=== PATIENT | female | born 1960 | race Caucasian/White ===

== ENCOUNTER 2018-02-15 23:20 | Inpatient (IN) ==
[2018-02-15] MEDS ORDERED: Ketorolac Inj 30 MG/ML (IVP) Vial IV.PUSH ONE (23:59)
[2018-02-15] MEDS ORDERED: Sod Chloride 0.9% Inj 1,000 ML IV.SIG ONE (23:59)
[2018-02-15] MEDS ORDERED: Morphine Inj 4 MG/ML Vial IV.PUSH ONE (23:59)
--- NOTE | 2018-02-16 00:05 | ED ---
HPI General Chief Complaint: Abdominal Pain Stated Complaint: Poss High BP Time Seen by Provider: 02/15/18 23:52 Source: patient and family Mode of arrival: ambulatory Limitations: no limitations History of Present Illness HPI narrative: The patient is a 57-year-old female who presents to the emergency department with her son for left flank pain. The patient notes that the pain started approximately 10 days ago, initially was intermittent, however , is now constant and progressive. The patient does complain of mild dysuria and hematuria. The patient does have a history of similar symptoms in the past secondary to nephrolithiasis, approximately 8 years ago. Symptoms are moderate without any alleviating or exacerbating factors. The patient does have a history of previous abdominal surgeries including surgery for uterine prolapse and appendicitis. The patient does note chills without fever. MD complaint: flank pain Onset (ago): day(s) Pain Consistency: intermittent Location: L flank Related Data Allergies Allergy/AdvReac Type Severity Reaction Status Date / Time No Known Allergies Allergy Verified 02/15/18 23:48 Review of Systems ROS: all other systems reviewed are negative [facility] Medical History Medical History Hypertension (Acute) Kidney stones (Acute) Prolapsed uterus (Acute) Surgical History Surgical History History of appendectomy (Acute) Social History Social History Substance History: No History of Abuse Smoking Status: Never smoker How Often Do You Have a Drink Containing Alcohol: Never Recent Travel in [facility] within the Last 8 Weeks: No Recent Out of Country Travel within the Last 8 Weeks: No Immunization History Tetanus Immunization: >5 Years Exam Narrative Exam Narrative: GENERAL: Awake, alert, pleasant 57-year-old female who appears her stated age and is in no acute respiratory distress. SKIN: Focused skin assessment warm/dry. HEAD: Atraumatic. Normocephalic. EYES: No injection or drainage per ENT: No nasal bleeding or discharge. Mucous membranes pink and moist. NECK: Trachea midline. No JVD. CARDIOVASCULAR: Regular rate and rhythm. No murmur appreciated. Rate in the 90s per RESPIRATORY: No accessory muscle use. Clear to auscultation. Breath sounds equal bilaterally. GASTROINTESTINAL: Abdomen soft, left flank tenderness. No guarding rigidity. Back: Left CVA tenderness. MUSCULOSKELETAL: No obvious deformities. No clubbing. No cyanosis. No edema. NEUROLOGICAL: Awake and alert. No obvious cranial nerve deficits. Motor grossly within normal limits. Normal speech. PSYCHIATRIC: Appropriate mood and affect; insight and judgment normal. Course Initial Documented Vital Signs Temperature 100.9 F H 02/15/18 23:33 Pulse Rate 95 H 02/15/18 23:33 Respiratory Rate 18 02/15/18 23:33 Blood Pressure 138/63 02/15/18 23:33 Pulse Oximetry 98 02/15/18 23:33 Last Documented Vital Signs Temperature 100.9 F H 02/15/18 23:33 Pulse Rate 95 H 02/15/18 23:33 Respiratory Rate 18 02/15/18 23:33 Blood Pressure 138/63 02/15/18 23:33 Pulse Oximetry 98 02/15/18 23:33 Medical Decision Making MDM Narrative Medical decision making narrative: IV was established, labs are drawn and sent, and the patient was placed on cardiac telemetry monitoring and continuous pulse oximetry monitoring. UA was sent to lab. The patient was administer morphine, Toradol, Zofran, and IV fluids. Noncontrast CT of the abdomen and pelvis was obtained to evaluate for nephrolithiasis/diverticulitis. UA reveals RBCs, only a few WBCs. White count was normal. Lactic acid was normal. Creatinine is mildly rated at 1.29. CT of the abdomen and pelvis reveals a 7 mm stone in the left ureter with hydronephrosis. The patient has a temperature of 100.9 and pulse of 95, meet sepsis criteria. Therefore, the patient was administer Rocephin 1 g intravenously and will be admitted for urology evaluation. The on- call medical service was paged for admission. I discussed the patient with Dr. Huerta who agrees with 23 hour observation. Medical Screen Exam Complete: Yes Emergency Medical Condition: Yes Differential Diagnosis Differential Diagnosis: Differential diagnosis includes nephrolithiasis, hydronephrosis, pyelonephritis, diverticulitis, sepsis, intra-abdominal abscess. Lab Data Result diagrams: 02/16/18 00:17 02/16/18 00:17 Lab Results 02/16/18 02/16/18 02/16/18 Range/Units 00:17 00:17 00:17 WBC 8.6 (4.0-11.0) th/mm3 RBC 4.12 (4.00-5.30) mil/mm3 Hgb 12.2 (11.6-15.3) gm/dL Hct 35.4 (35.0-46.0) % MCV 85.8 (80.0-100.0) fL MCH 29.6 (27.0-34.0) pg MCHC 34.5 (32.0-36.0) % RDW 13.9 (11.6-17.2) % Plt Count 281 (150-450) th/mm3 MPV 7.2 (7.0-11.0) fL Neut % (Auto) 74.2 H (16.0-70.0) % Lymph % (Auto) 15.9 (9.0-44.0) % [place] % (Auto) 7.3 (0.0-8.0) % Eos % (Auto) 2.2 (0.0-4.0) % Baso % (Auto) 0.4 (0.0-2.0) % Neut # (Auto) 6.4 (1.8-7.7) th/mm3 Lymph # (Auto) 1.4 (1.0-4.8) th/mm3 [place] # (Auto) 0.6 (0.0-0.9) th/mm3 Eos # (Auto) 0.2 (0.0-0.4) th/mm3 Baso # (Auto) 0.0 (0.0-0.2) th/mm3 WBC Differential . Differential Comment Auto diff final Sodium 144 (136-145) meq/L Potassium 4.2 (3.5-5.1) meq/L Chloride 108 H (98-107) meq/L Carbon Dioxide 28.6 (21.0-32.0) meq/L Anion Gap 7 (5-15) meq/L BUN 20 H (7-18) mg/dL Creatinine 1.29 H (0.50-1.00) mg/dL Estimated GFR 43 L (>89) mL/min Random Glucose 128 H (74-106) mg/dL Lactic Acid 0.8 (0.4-2.0) mmol/L Calcium 8.9 (8.5-10.1) mg/dL Total Bilirubin 0.3 (0.2-1.0) mg/dL AST 20 (15-37) U/L ALT 26 (10-53) U/L Alkaline Phosphatase 144 H (45-117) U/L Total Protein 8.5 H (6.4-8.2) g/dL Albumin 3.6 (3.4-5.0) g/dL Lipase 131 (73-393) U/L Urine Color (Yellw/Straw) Urine Clarity (Clear) Urine pH (5.0-8.5) Ur Specific [place] (1.002-1.035) Urine Protein (Neg-Trace) mg/dL Urine Glucose (UA) (Negative) mg/dL Urine Ketones (Negative) mg/dL Urine Occult Blood (Negative) Urine Nitrate (Negative) Urine Bilirubin (Negative) Urine Urobilinogen (Less than 2) mg/dL Ur Leukocyte Esterase (Negative) Urine RBC (0-3) /hpf Urine WBC (0-5) /hpf Ur Squamous Epith Cells (0-5) /hpf Micro UA Comment Ur Microscopic Review Urine Culture Comments 02/16/18 Range/Units 00:17 WBC (4.0-11.0) th/mm3 RBC (4.00-5.30) mil/mm3 Hgb (11.6-15.3) gm/dL Hct (35.0-46.0) % MCV (80.0-100.0) fL MCH (27.0-34.0) pg MCHC (32.0-36.0) % RDW (11.6-17.2) % Plt Count (150-450) th/mm3 MPV (7.0-11.0) fL Neut % (Auto) (16.0-70.0) % Lymph % (Auto) (9.0-44.0) % [place] % (Auto) (0.0-8.0) % Eos % (Auto) (0.0-4.0) % Baso % (Auto) (0.0-2.0) % Neut # (Auto) (1.8-7.7) th/mm3 Lymph # (Auto) (1.0-4.8) th/mm3 [place] # (Auto) (0.0-0.9) th/mm3 Eos # (Auto) (0.0-0.4) th/mm3 Baso # (Auto) (0.0-0.2) th/mm3 WBC Differential Differential Comment Sodium (136-145) meq/L Potassium (3.5-5.1) meq/L Chloride (98-107) meq/L Carbon Dioxide (21.0-32.0) meq/L Anion Gap (5-15) meq/L BUN (7-18) mg/dL Creatinine (0.50-1.00) mg/dL Estimated GFR (>89) mL/min Random Glucose (74-106) mg/dL Lactic Acid (0.4-2.0) mmol/L Calcium (8.5-10.1) mg/dL Total Bilirubin (0.2-1.0) mg/dL AST (15-37) U/L ALT (10-53) U/L Alkaline Phosphatase (45-117) U/L Total Protein (6.4-8.2) g/dL Albumin (3.4-5.0) g/dL Lipase (73-393) U/L Urine Color Yellow (Yellw/Straw) Urine Clarity Hazy H (Clear) Urine pH 6.0 (5.0-8.5) Ur Specific [place] 1.010 (1.002-1.035) Urine Protein Negative (Neg-Trace) mg/dL Urine Glucose (UA) Negative (Negative) mg/dL Urine Ketones Negative (Negative) mg/dL Urine Occult Blood Large H (Negative) Urine Nitrate Negative (Negative) Urine Bilirubin Negative (Negative) Urine Urobilinogen Less than 2 (Less than 2) mg/dL Ur Leukocyte Esterase Trace H (Negative) Urine RBC 159 H (0-3) /hpf Urine WBC 6 H (0-5) /hpf Ur Squamous Epith Cells <1 (0-5) /hpf Micro UA Comment Culture not ind Ur Microscopic Review Not Reportable Urine Culture Comments Culture not ind Imaging Data Radiologist's impression: Abdomen/Pelvis CT 02/16/18 00:00 CONCLUSION: 1. 7 mm distal left ureteral stone with obstruction. 2. Prior cholecystectomy. Discharge Plan Discharge Disposition Patient Disposition: 30 Still Patient Discharge Condition Condition: Stable Discharge Details Diagnosis: Ureterolithiasis, Febrile illness, Hydronephrosis, Acute kidney injury Physicians Team ED Provider: Chris Miller Primary Care Provider: Primary Care Maureen Hernandez Status ED Status: Pending Admission
[2018-02-16 00:34] LABS: Baso % (Auto) 0.4 % (0.0-2.0); Eos # (Auto) 0.2 th/mm3 (0.0-0.4); Eos % (Auto) 2.2 % (0.0-4.0); Hematocrit 35.4 % (35.0-46.0); Hemoglobin 12.2 gm/dL (11.6-15.3); Lymph # (Auto) 1.4 th/mm3 (1.0-4.8); Lymph % (Auto) 15.9 % (9.0-44.0); Mean Corpuscular HGB Conc 34.5 % (32.0-36.0); Mean Corpuscular Hemoglobin 29.6 pg (27.0-34.0); Mean Corpuscular Volume 85.8 fL (80.0-100.0); Mean Platelet Volume 7.2 fL (7.0-11.0); Mono # (Auto) 0.6 th/mm3 (0.0-0.9); Mono % (Auto) 7.3 % (0.0-8.0); Neut # (Auto) 6.4 th/mm3 (1.8-7.7); Neut % (Auto) 74.2 % (16.0-70.0); Platelet Count 281 th/mm3 (150-450); Red Blood Count 4.12 mil/mm3 (4.00-5.30); Red Cell Distribution Width 13.9 % (11.6-17.2); White Blood Count 8.6 th/mm3 (4.0-11.0)
--- NOTE | 2018-02-16 00:40 | CT ---
EXAM DATE: 02/16/2018 12:31 AM EDT AGE/SEX: 57 years / Female INDICATIONS: Left flank pain. CLINICAL DATA: This is the patient's initial encounter. Patient reports that signs and symptoms have been present for 1 day and indicates a pain score of 7/10. MEDICAL/SURGICAL HISTORY: None. None. RADIATION DOSE: 11.45 CTDI (mGy) COMPARISON: No prior exams available for comparison. TECHNIQUE: Multiple contiguous axial images were obtained through the abdomen. Images were obtained using multiple row detector helical technique. Using automated exposure control and adjustment of the mA and/or kV according to patient size, radiation dose was kept as low as reasonably achievable to o btain optimal diagnostic quality images. DICOM format image data is available electronically for rev iew and comparison. FINDINGS: Lower Lungs: The visualized lower lungs are clear. Liver: The liver has a homogeneous density without space-occupying lesion. There is no dilation of th e biliary tree. Prior cholecystectomy. Spleen: Homogeneous density without enlargement. Pancreas: Unremarkable without mass or calcification. Kidneys: There is a 7 mm distal left ureteral stone. The stone is at the level of the crossing of th e iliac vessels. There is resulting moderate hydronephrosis and hydroureter. No perinephric stranding or fluid collections. No other stones seen involving either kidney. No hydronephrosis on the right.. Adrenal Glands: Unremarkable. Aorta: The aorta and proximal iliac vessels are grossly unremarkable without aneurysmal dilation. Bowel/Mesentery: The bowel loops are grossly unremarkable. The cecum and sigmoid colon have a normal configuration. Abdominal Wall: Intact. Retroperitoneum: No evidence of adenopathy in the retrocrural, para-aortic, or deep pelvic regions. Bladder: Contours are smooth. Reproductive Organs: No abnormal masses or calcifications seen. Inguinal: The inguinal region is unremarkable without evidence of adenopathy. Bony Structures: Postsurgical changes involving the lower lumbar spine. CONCLUSION: 1. 7 mm distal left ureteral stone with obstruction. 2. Prior cholecystectomy. Electronically signed by: Danis Granda MD 02/16/2018 12:39 AM EDT
[2018-02-16 00:54] LABS: Bilirubin,Urine Negative (Negative); Glucose,Urine (UA) Negative (Negative); Leukocyte Esterase,Urine Trace (Negative); Nitrite,Urine Negative (Negative); Squamous Epithelial Cell,Urine <1 /hpf (0-5)
[2018-02-16 00:55] LABS: Clarity,Urine Hazy (Clear); Color,Urine Yellow (Yellw/Straw)
[2018-02-16 00:56] LABS: Alkaline Phosphatase 144 U/L (45-117); Total Protein 8.5 g/dL (6.4-8.2)
[2018-02-16 01:04] LABS: Alanine Aminotransferase 26 U/L (10-53); Albumin 3.6 g/dL (3.4-5.0); Anion Gap 7 meq/L (5-15); Aspartate Aminotransferase 20 U/L (15-37); Blood Urea Nitrogen 20 mg/dL (7-18); Calcium 8.9 mg/dL (8.5-10.1); Carbon Dioxide 28.6 meq/L (21.0-32.0); Chloride 108 meq/L (98-107); Glomerular Filtration Rate 43 mL/min (>89); Glucose,Random 128 mg/dL (74-106); Lipase 131 U/L (73-393); Potassium 4.2 meq/L (3.5-5.1); Sodium 144 meq/L (136-145)
[2018-02-16] MEDS ORDERED: Bisacodyl 10 MG Supp RECTAL PRN (02:16)
[2018-02-16] MEDS ORDERED: Morphine Inj 4 MG/ML Vial IV.PUSH PRN (02:17)
[2018-02-16] MEDS: Sod Chloride 0.9% Inj 1,000 ML IV.CONT SCH ×3 (03:07→22:30)
--- NOTE | 2018-02-16 03:20 | P.HPIM ---
History of Present Illness Primary Care Physician: No Primary Care Physician History of Present Illness: This is a 57-year-old [place] female with a PMH of HTN and Renal Stones who was brought to the ER by Son for evaluation of fever, chills and left flank pain. History obtained by me from patient in Ethiopian, she tells me she's had left-sided flank pain for approx 10 days. Today, noted to have subjective fever /chills and multiple episodes of nausea/vomiting. Has been taking OTC Ibuprofen w/ minimal relief. H/o Renal Stones 8yrs ago and again 3 yrs ago, both of which resolved spontaneously. On arrival, BP 138/63, HR 95, O2 sat 100 % on RA, Temp 100.9. CBC essentially unremarkable. Chemistry unremarkable except for creatinine 1.29. Lactic Acid normal. UA positive for UTI. CT Abdomen/Pelvis with 7 mm distal left ureteral stone with obstruction and moderate hydronephrosis/hydroureter. S/p Rocephin in ER. - Diagnosis (1) Renal stone (2) UTI (urinary tract infection) (3) BERNARDO (acute kidney injury) (4) Hydronephrosis Review of Systems PAST FAMILY HISTORY: Reviewed. No h/o DM or CAD All other systems reviewed negative except as stated in HPI PMFSH - History History Provided By: Patient, Family Member - Medical History Medical History: Medical History (Last Updated 02/15/18 @ 23:44 by Eliana Toledo RN) Hypertension Kidney stones Prolapsed uterus - Surgical History Surgical History: Surgical History (Last Updated 02/15/18 @ 23:44 by Eliana Toledo RN) History of appendectomy - Tobacco History Smoking Status: Never smoker - Alcohol History How Often Do You Have a Drink Containing Alcohol: Never - Substance Use History Substance History: No History of Abuse - Travel History Recent Travel in the [place] Within the Last 8 Weeks: No Recent Travel Out of the Country Within the Last 8 Weeks: No - Immunization History Tetanus Immunization: >5 Years Medications and Allergies Active Medications: Active Medications Acetaminophen (Tylenol) 650 mg PO Q4H PRN PRN Reason: Temp > 100.4 Al Hydroxide/Mg Hydroxide (Milk Of Magnesia Liq) 30 ml PO Q12H PRN PRN Reason: Mild Constipation Bisacodyl (Dulcolax Supp) 10 mg RECTAL DAILY PRN PRN Reason: SEVERE CONSITIPATION Ceftriaxone Sodium 1,000 mg/ (Sodium Chloride) 100 mls @ 200 mls/hr IV.SIG Q24H DOMINIK Sodium Chloride (Ns Inj) 1,000 mls @ 100 mls/hr IV.CONT .Q10H DOMINIK Last Admin: 02/16/18 03:07 Dose: 100 mls/hr Lactulose (Lactulose Liq) 30 ml PO DAILY PRN PRN Reason: SEVERE CONSITIPATION Morphine Sulfate (Morphine Inj) 2 mg IV.PUSH Q4H PRN PRN Reason: PAIN 6-10 Ondansetron HCl (Zofran Inj) 4 mg IV.PUSH Q6H PRN PRN Reason: NAUSEA OR VOMITING Senna/Docusate Sodium (No-Colace) 1 tab PO BID DOMINIK Sennosides (Senokot) 17.2 mg PO Q12H PRN PRN Reason: Moderate Constipation Sodium Chloride (Ns Flush) 2 ml IV.FLUSH PRN PRN PRN Reason: FLUSH AFTER USING IV ACCESS Allergies Allergy/AdvReac Type Severity Reaction Status Date / Time No Known Allergies Allergy Verified 02/15/18 23:48 Exam Vital signs: Vital Signs 02/15/18 23:33 02/16/18 02:52 Temperature 100.9 F H Pulse Rate 95 H Respiratory Rate 18 20 Blood Pressure 138/63 Pulse Oximetry 98 Intake & Output 02/15/18 02/15/18 02/16/18 06:59 18:59 06:59 Weight 75 kg Narrative: PE: GENERAL: Very pleasant middle-aged female in no acute distress. SKIN: Focused skin assessment warm and dry. HEENT: PERRLA, EOMI. No scleral icterus or conjunctival pallor. No lid lag or facial droop. CARDIOVASCULAR: Regular rate and rhythm. No obvious murmurs to auscultation. No chest tenderness to palpation. RESPIRATORY: No obvious rhonchi or wheezing. Clear to auscultation. Breath sounds equal bilaterally. GASTROINTESTINAL: Abdomen soft, left flank tenderness, nondistended. BS normal. MUSCULOSKELETAL: Extremities without clubbing, cyanosis, or edema. No obvious deformities. NEUROLOGICAL: Awake, alert and oriented x4. No focal neurologic deficits. Moving both upper and lower extremities spontaneously. PSYCHIATRIC: Appropriate mood and affect. Insight and judgment normal. Results - Labs CBC & Chem 7: 02/16/18 00:17 02/16/18 00:17 Labs: Short CBC 02/16/18 Range/Units 00:17 WBC 8.6 (4.0-11.0) th/mm3 Hgb 12.2 (11.6-15.3) gm/dL Hct 35.4 (35.0-46.0) % Plt Count 281 (150-450) th/mm3 BMP 02/16/18 00:17 Sodium 144 Potassium 4.2 Chloride 108 H Carbon Dioxide 28.6 BUN 20 H Creatinine 1.29 H Calcium 8.9 Liver Function 02/16/18 Range/Units 00:17 Total Bilirubin 0.3 (0.2-1.0) mg/dL AST 20 (15-37) U/L ALT 26 (10-53) U/L Alkaline Phosphatase 144 H (45-117) U/L Albumin 3.6 (3.4-5.0) g/dL Urine 02/16/18 Range/Units 00:17 Urine Color Yellow (Yellw/Straw) Urine Clarity Hazy H (Clear) Urine pH 6.0 (5.0-8.5) Ur Specific [place] 1.010 (1.002-1.035) Urine Protein Negative (Neg-Trace) mg/dL Urine Glucose (UA) Negative (Negative) mg/dL - Imaging Impressions Abdomen/Pelvis CT 02/16/18 00:00 CONCLUSION: 1. 7 mm distal left ureteral stone with obstruction. 2. Prior cholecystectomy. Caprini VTE Risk Assessment Caprini VTE Risk Assessment: No/Low Risk (score <= 1) Caprini Risk Assessment Model: Point Value = 1 Point Value = 2 Point Value = 3 Point Value = 5 Age 41-60 Minor surgery BMI > 25 kg/m2 Swollen legs Varicose veins or History of unexplained or recurrent spontaneous Oral contraceptives or hormone replacement Sepsis (< 1 month) Serious lung disease, including pneumonia (< 1 month) Abnormal pulmonary function Acute myocardial infarction Congestive heart failure (< 1 month) History of inflammatory bowel disease Medical patient at bed rest Age 61-74 Arthroscopic surgery Major open surgery (> 45 min) Laparoscopic surgery (> 45 min) Malignancy Confined to bed (> 72 hours) Immobilizing plaster cast Central venous access Age >= 75 History of VTE Family history of VTE Factor V Leiden Prothrombin [id number] Lupus anticoagulant Anticardiolipin antibodies Elevated serum homocysteine Heparin-induced thrombocytopenia Other congenital or acquired thrombophilia Stroke (< 1 month) Elective arthroplasty Hip, pelvis, or leg fracture Acute spinal cord injury (< 1 month) Prophylaxis Regimen: Total Risk Factor Score Risk Level Prophylaxis Regimen 0-1 Low Early ambulation 2 Moderate Order ONE of the following: *Sequential Compression Device (SCD) *Heparin 5000 units SQ BID 3-4 Higher Order ONE of the following medications: *Heparin 5000 units SQ TID *Enoxaparin/Lovenox 40 mg SQ daily (WT < 150 kg, CrCl > 30 mL/min) *Enoxaparin/Lovenox 30 mg SQ daily (WT < 150 kg, CrCl > 10-29 mL/min) *Enoxaparin/Lovenox 30 mg SQ BID (WT < 150 kg, CrCl > 30 mL/min) AND/OR *Sequential Compression Device (SCD) 5 or more Highest Order ONE of the following medications: *Heparin 5000 units SQ TID (Preferred with Epidurals) *Enoxaparin/Lovenox 40 mg SQ daily (WT < 150 kg, CrCl > 30 mL/min) *Enoxaparin/Lovenox 30 mg SQ daily (WT < 150 kg, CrCl > 10-29 mL/min) *Enoxaparin/Lovenox 30 mg SQ BID (WT < 150 kg, CrCl > 30 mL/min) AND *Sequential Compression Device (SCD) Assessment and Plan - Assessment (1) Renal stone Code(s): N20.0 - Calculus of kidney Status: Acute (2) UTI (urinary tract infection) Code(s): N39.0 - Urinary tract infection, site not specified Status: Acute (3) BERNARDO (acute kidney injury) Code(s): N17.9 - Acute kidney failure, unspecified Status: Acute (4) Hydronephrosis Code(s): N13.30 - Unspecified hydronephrosis Status: Acute - Plan A/P: 1. Renal Stone: left flank pain, nausea/vomiting x10 days, CT Abd/Pelvis w/ 7mm distal left ureteral stone w/ moderate hydronephrosis/hydroureter. Consult Urology for further eval/intervention, NPO, IVF, analgesics/antiemetics as needed. 2. UTI: U/a w/ hematuria/bacteriuria, Temp 100.9, s/p Rocephin, continue w/ IV Abx, follow up cultures, IVF for hydration, monitor I/O. 3. BERNARDO: Creatinine 1.29, no previous labs for comparison, presumably new and secondary to above, IVF for hydration, repeat labs in am, monitor I/O. 4. DVT Prophylaxis: SCD/Teds 5. Social work for d/c planning as needed 6. Case discussed w/ ER physician at length, labs/records/imaging reviewed by me. (4) Hydronephrosis Qualifiers: Hydronephrosis type: unspecified Qualified Code(s): N13.30 - Unspecified hydronephrosis
[2018-02-16] MEDS: Senna/Docusate Sodium 8.6/50 MG Tablet PO SCH ×2 (08:24→20:05)
--- NOTE | 2018-02-16 10:59 | P.PN ---
Subjective Interval history: Patient seen and examined this morning, their vitals are stable and the patient is afebrile. States abdominal, and back pain has resolved. Denies fevers or chills. States she has been constipated for a few days, had a BM yesterday. Breathing well. No other concerns. Son is at bedside. Physical Exam Vital signs: Vital Signs 02/15/18 23:33 02/16/18 02:52 02/16/18 03:30 Temperature 100.9 F H 98.2 F Pulse Rate 95 H 75 Respiratory Rate 18 20 18 Blood Pressure 138/63 125/60 Pulse Oximetry 98 98 02/16/18 08:00 Temperature 98.2 F Pulse Rate 63 Respiratory Rate 16 Blood Pressure 117/56 L Pulse Oximetry 97 Intake & Output 02/15/18 02/16/18 02/16/18 18:59 06:59 18:59 Intake Total 1220 / 1220 Balance 1220 / 1220 Weight 77.5 kg Intake: IV 1100 / 1100 NS Inj 1,000 ML @ Wide Open IV. 1000 / 1000 SIG BOLUS ONE Rx#:[id number] Rocephin Inj 1,000 MG In NS Inj 100 / 100 100 ML @ 200 mls/hr IV.SIG ONCE ONE Rx#:[id number] Oral 120 / 120 Other: # Voids 1 Date of Last Bowel Movement 02/15/18 02/15/18 Weight On Admission 77.5 kg Narrative: GENERAL: Well-appearing, no acute distress SKIN: Warm and dry. HEAD: Normocephalic. EYES: No scleral icterus. No injection or drainage. NECK: Supple, trachea midline. No JVD or lymphadenopathy. CARDIOVASCULAR: Regular rate and rhythm without murmurs, gallops, or rubs. RESPIRATORY: Breath sounds equal bilaterally. No accessory muscle use. GASTROINTESTINAL: Abdomen soft, non-tender, nondistended. minimal left CVA tenderness MUSCULOSKELETAL: No cyanosis, or edema. Results - Labs CBC & Chem 7: 02/16/18 00:17 02/16/18 00:17 Laboratory Results - last 24 hr 02/16/18 02/16/18 02/16/18 00:17 00:17 00:17 WBC 8.6 RBC 4.12 Hgb 12.2 Hct 35.4 MCV 85.8 MCH 29.6 MCHC 34.5 RDW 13.9 Plt Count 281 MPV 7.2 Neut % (Auto) 74.2 H Lymph % (Auto) 15.9 [place] % (Auto) 7.3 Eos % (Auto) 2.2 Baso % (Auto) 0.4 Neut # (Auto) 6.4 Lymph # (Auto) 1.4 [place] # (Auto) 0.6 Eos # (Auto) 0.2 Baso # (Auto) 0.0 WBC Differential . Differential Comment Auto diff final Sodium 144 Potassium 4.2 Chloride 108 H Carbon Dioxide 28.6 Anion Gap 7 BUN 20 H Creatinine 1.29 H Estimated GFR 43 L Random Glucose 128 H Lactic Acid 0.8 Calcium 8.9 Total Bilirubin 0.3 AST 20 ALT 26 Alkaline Phosphatase 144 H Total Protein 8.5 H Albumin 3.6 Lipase 131 Urine Color Urine Clarity Urine pH Ur Specific [place] Urine Protein Urine Glucose (UA) Urine Ketones Urine Occult Blood Urine Nitrate Urine Bilirubin Urine Urobilinogen Ur Leukocyte Esterase Urine RBC Urine WBC Ur Squamous Epith Cells Micro UA Comment Ur Microscopic Review Urine Culture Comments 02/16/18 00:17 WBC RBC Hgb Hct MCV MCH MCHC RDW Plt Count MPV Neut % (Auto) Lymph % (Auto) [place] % (Auto) Eos % (Auto) Baso % (Auto) Neut # (Auto) Lymph # (Auto) [place] # (Auto) Eos # (Auto) Baso # (Auto) WBC Differential Differential Comment Sodium Potassium Chloride Carbon Dioxide Anion Gap BUN Creatinine Estimated GFR Random Glucose Lactic Acid Calcium Total Bilirubin AST ALT Alkaline Phosphatase Total Protein Albumin Lipase Urine Color Yellow Urine Clarity Hazy H Urine pH 6.0 Ur Specific [place] 1.010 Urine Protein Negative Urine Glucose (UA) Negative Urine Ketones Negative Urine Occult Blood Large H Urine Nitrate Negative Urine Bilirubin Negative Urine Urobilinogen Less than 2 Ur Leukocyte Esterase Trace H Urine RBC 159 H Urine WBC 6 H Ur Squamous Epith Cells <1 Micro UA Comment Culture not ind Ur Microscopic Review Not Reportable Urine Culture Comments Culture not ind - Imaging Impressions Abdomen/Pelvis CT 02/16/18 00:00 CONCLUSION: 1. 7 mm distal left ureteral stone with obstruction. 2. Prior cholecystectomy. Assessment and Plan - Assessment (1) Renal stone Code(s): N20.0 - Calculus of kidney Status: Acute (2) UTI (urinary tract infection) Code(s): N39.0 - Urinary tract infection, site not specified Status: Acute (3) BERNARDO (acute kidney injury) Code(s): N17.9 - Acute kidney failure, unspecified Status: Acute (4) Hydronephrosis Code(s): N13.30 - Unspecified hydronephrosis Status: Acute - Plan In summary this is a 57-year-old female patient with a medical history that is significant for hypertension recurrent renal stones who was brought to the ER for fevers, chills, and flank pain. The patient is primarily English-speaking. In the ER patient was found to have a UTI, CT of the abdomen showed a 7 mm distal left ureteral stone with obstruction moderate hydronephrosis/hydroureter. Renal stone -See CT per above -Urology has been consulted -Morphine for pain control UTI -Urine culture pending -Rocephin 1 g daily AK I -Likely related to the above -Creatinine 1.29, unclear baseline DVT prophylaxis with bilateral SCDs Discussed Condition With: Patient and son Discharge Planning: Pending reccs by urology. (4) Hydronephrosis Qualifiers: Hydronephrosis type: unspecified Qualified Code(s): N13.30 - Unspecified hydronephrosis
--- NOTE | 2018-02-16 21:31 | P.CONURO ---
History of Present Illness Service: urology Consult date: 02/16/18 Reason for Consult: nephrolithiasis Primary Care Provider: No Primary Care Physician Chief Complaint: Nephrolithiasis History of Present Illness: 57yo female with history of nephrolithiasis admited for left flank pain and left sided nephrolithiasis. Patient reports she has been having left flank pain for several days that has worsened. She reported to the ED where a CT scan identified a 7mm left mid ureteral stone, mild left hydronephrosis. No fevers here, however patient reports subjective fevers, Normal WBC, normal Cr. Patient currently reports pain improved, however is afraid pain will return. Initial pain was left flank and sharp. Of note, patient would like procedure done as she does not wish to take time off work. Review of Systems All other systems reviewed negative except as stated in HPI [facility] - History History Provided By: Patient, Medical Record - Medical History Medical History: Medical History (Last Updated 02/15/18 @ 23:44 by Eliana Toledo RN) Hypertension Kidney stones Prolapsed uterus - Surgical History Surgical History: Surgical History (Last Updated 02/15/18 @ 23:44 by Eliana Toledo RN) History of appendectomy - Tobacco History Second Hand Smoke Exposure: No Smoking Status: Never smoker - Alcohol History How Often Do You Have a Drink Containing Alcohol: Never - Substance Use History Substance History: No History of Abuse - Travel History Recent Travel in the [place] Within the Last 8 Weeks: No Recent Travel Out of the Country Within the Last 8 Weeks: No - Immunization History Tetanus Immunization: >5 Years Hx Influenza Vaccine This Season: No Medications and Allergies Active Medications: Active Medications Acetaminophen (Tylenol) 650 mg PO Q4H PRN PRN Reason: Temp > 100.4 Al Hydroxide/Mg Hydroxide (Milk Of Magnesia Liq) 30 ml PO Q12H PRN PRN Reason: Mild Constipation Bisacodyl (Dulcolax Supp) 10 mg RECTAL DAILY PRN PRN Reason: SEVERE CONSITIPATION Ceftriaxone Sodium 1,000 mg/ (Sodium Chloride) 100 mls @ 200 mls/hr IV.SIG Q24H DOMINIK Sodium Chloride (Ns Inj) 1,000 mls @ 100 mls/hr IV.CONT .Q10H DOMINIK Last Admin: 02/16/18 13:12 Dose: 100 mls/hr Lactulose (Lactulose Liq) 30 ml PO DAILY PRN PRN Reason: SEVERE CONSITIPATION Morphine Sulfate (Morphine Inj) 2 mg IV.PUSH Q4H PRN PRN Reason: PAIN 6-10 Ondansetron HCl (Zofran Inj) 4 mg IV.PUSH Q6H PRN PRN Reason: NAUSEA OR VOMITING Senna/Docusate Sodium (No-Colace) 1 tab PO BID DOMINIK Last Admin: 02/16/18 20:05 Dose: 1 tab Sennosides (Senokot) 17.2 mg PO Q12H PRN PRN Reason: Moderate Constipation Sodium Chloride (Ns Flush) 2 ml IV.FLUSH PRN PRN PRN Reason: FLUSH AFTER USING IV ACCESS Allergies Allergy/AdvReac Type Severity Reaction Status Date / Time No Known Allergies Allergy Verified 02/15/18 23:48 Home Medications Medication Instructions Recorded Confirmed Type naproxen 500 mg PO TID PRN 02/16/18 02/16/18 History Physical Exam Vital Signs - 24 hr 02/15/18 23:33 02/16/18 02:52 02/16/18 03:30 Temperature 100.9 F H 98.2 F Pulse Rate 95 H 75 Respiratory Rate 18 20 18 Blood Pressure 138/63 125/60 Pulse Oximetry 98 98 02/16/18 08:00 02/16/18 12:00 02/16/18 16:00 Temperature 98.2 F 98.4 F 98.4 F Pulse Rate 63 68 63 Respiratory Rate 16 16 16 Blood Pressure 117/56 L 115/56 L 137/65 Pulse Oximetry 97 97 97 02/16/18 20:00 Temperature 98.7 F Pulse Rate 72 Respiratory Rate 17 Blood Pressure 123/58 L Pulse Oximetry 96 Physical Exam: GENERAL: This is a well-nourished, well-developed patient, in no apparent distress. SKIN: No rashes, ecchymoses or lesions. Cool and dry. HEAD: Atraumatic. Normocephalic. EYES: Extraocular motions intact. No scleral icterus. No injection or drainage. ENT: Nose without bleeding, purulent drainage. Airway patent. NECK: Trachea midline. CARDIOVASCULAR: Normal pulse RESPIRATORY: nonlabored GASTROINTESTINAL: Abdomen soft, non-tender, nondistended.Left flank pain MUSCULOSKELETAL: Extremities without clubbing, cyanosis, or edema. NEUROLOGICAL: Awake and alert. Motor and sensory grossly within normal limits. Normal speech. Lab results reviewed: Yes Laboratory Results - last 24 hr 02/16/18 02/16/18 02/16/18 00:17 00:17 00:17 WBC 8.6 RBC 4.12 Hgb 12.2 Hct 35.4 MCV 85.8 MCH 29.6 MCHC 34.5 RDW 13.9 Plt Count 281 MPV 7.2 Neut % (Auto) 74.2 H Lymph % (Auto) 15.9 [place] % (Auto) 7.3 Eos % (Auto) 2.2 Baso % (Auto) 0.4 Neut # (Auto) 6.4 Lymph # (Auto) 1.4 [place] # (Auto) 0.6 Eos # (Auto) 0.2 Baso # (Auto) 0.0 WBC Differential . Differential Comment Auto diff final Sodium 144 Potassium 4.2 Chloride 108 H Carbon Dioxide 28.6 Anion Gap 7 BUN 20 H Creatinine 1.29 H Estimated GFR 43 L Random Glucose 128 H Lactic Acid 0.8 Calcium 8.9 Total Bilirubin 0.3 AST 20 ALT 26 Alkaline Phosphatase 144 H Total Protein 8.5 H Albumin 3.6 Lipase 131 Urine Color Urine Clarity Urine pH Ur Specific [place] Urine Protein Urine Glucose (UA) Urine Ketones Urine Occult Blood Urine Nitrate Urine Bilirubin Urine Urobilinogen Ur Leukocyte Esterase Urine RBC Urine WBC Ur Squamous Epith Cells Micro UA Comment Ur Microscopic Review Urine Culture Comments 02/16/18 00:17 WBC RBC Hgb Hct MCV MCH MCHC RDW Plt Count MPV Neut % (Auto) Lymph % (Auto) [place] % (Auto) Eos % (Auto) Baso % (Auto) Neut # (Auto) Lymph # (Auto) [place] # (Auto) Eos # (Auto) Baso # (Auto) WBC Differential Differential Comment Sodium Potassium Chloride Carbon Dioxide Anion Gap BUN Creatinine Estimated GFR Random Glucose Lactic Acid Calcium Total Bilirubin AST ALT Alkaline Phosphatase Total Protein Albumin Lipase Urine Color Yellow Urine Clarity Hazy H Urine pH 6.0 Ur Specific [place] 1.010 Urine Protein Negative Urine Glucose (UA) Negative Urine Ketones Negative Urine Occult Blood Large H Urine Nitrate Negative Urine Bilirubin Negative Urine Urobilinogen Less than 2 Ur Leukocyte Esterase Trace H Urine RBC 159 H Urine WBC 6 H Ur Squamous Epith Cells <1 Micro UA Comment Culture not ind Ur Microscopic Review Not Reportable Urine Culture Comments Culture not ind Result Diagrams: 02/16/18 00:17 02/16/18 00:17 Personally reviewed images: Yes Imaging: ITS Impressions Abdomen/Pelvis CT 02/16/18 00:00 CONCLUSION: 1. 7 mm distal left ureteral stone with obstruction. 2. Prior cholecystectomy. Assessment and Plan - Assessment (1) Ureterolithiasis Code(s): N20.1 - Calculus of ureter Status: Acute (2) Hydronephrosis Code(s): N13.30 - Unspecified hydronephrosis Status: Acute (3) Renal stone Code(s): N20.0 - Calculus of kidney Status: Acute - Plan -7mm left mid ureteral stone, mild hydro -At this time the patient is comfortable, no fevers, normal WBC, no pain -No emergen intervention indicated at this time -We discussed treatment with ESWL vs Ureteroscopy vs ureteral stent vs nephrostomy tube -Patient is comfortable and stable and may be discharged home with followup as outpatient for Urology treatment. Patient reports she is without insurance, and information regarding the [employer] patient assistance program provided. She may establish care with [facility] for treatment of her nephrolithiasis -Please call with questions (2) Hydronephrosis Qualifiers: Hydronephrosis type: unspecified Qualified Code(s): N13.30 - Unspecified hydronephrosis
[2018-02-16] MEDS: Acetaminophen 325 MG Tablet PO PRN (22:31)
[2018-02-16] MEDS: Melatonin 5 MG Tablet PO PRN (23:00)
[2018-02-17] MEDS: Acetaminophen 325 MG Tablet PO PRN (06:12)
[2018-02-17 06:34] LABS: Baso % (Auto) 0.6 % (0.0-2.0); Eos # (Auto) 0.2 th/mm3 (0.0-0.4); Eos % (Auto) 3.6 % (0.0-4.0); Hematocrit 31.5 % (35.0-46.0); Hemoglobin 10.7 gm/dL (11.6-15.3); Lymph # (Auto) 2.2 th/mm3 (1.0-4.8); Lymph % (Auto) 39.4 % (9.0-44.0); Mean Corpuscular HGB Conc 34.1 % (32.0-36.0); Mean Corpuscular Hemoglobin 29.6 pg (27.0-34.0); Mean Corpuscular Volume 86.9 fL (80.0-100.0); Mean Platelet Volume 7.3 fL (7.0-11.0); Mono # (Auto) 0.4 th/mm3 (0.0-0.9); Mono % (Auto) 6.8 % (0.0-8.0); Neut # (Auto) 2.7 th/mm3 (1.8-7.7); Neut % (Auto) 49.6 % (16.0-70.0); Platelet Count 256 th/mm3 (150-450); Red Blood Count 3.63 mil/mm3 (4.00-5.30); Red Cell Distribution Width 14.1 % (11.6-17.2); White Blood Count 5.5 th/mm3 (4.0-11.0)
[2018-02-17 06:56] LABS: Alanine Aminotransferase 22 U/L (10-53); Albumin 2.9 g/dL (3.4-5.0); Alkaline Phosphatase 106 U/L (45-117); Anion Gap 10 meq/L (5-15); Aspartate Aminotransferase 11 U/L (15-37); Blood Urea Nitrogen 13 mg/dL (7-18); Calcium 8.7 mg/dL (8.5-10.1); Carbon Dioxide 25.5 meq/L (21.0-32.0); Chloride 111 meq/L (98-107); Glomerular Filtration Rate 59 mL/min (>89); Glucose,Random 105 mg/dL (74-106); Potassium 4.1 meq/L (3.5-5.1); Sodium 146 meq/L (136-145)
[2018-02-17] MEDS: Senna/Docusate Sodium 8.6/50 MG Tablet PO SCH ×2 (09:05→22:10)
[2018-02-17] MEDS: Sod Chloride 0.9% Inj 1,000 ML IV.CONT SCH ×3 (10:35→23:19)
--- NOTE | 2018-02-17 10:56 | P.PN ---
Subjective Interval history: Patient seen and examined this morning, their vitals are stable and the patient is afebrile. Patient wishes to have surgery in hospital. Reports pain has worsened, is tearful. Yesterday state pain was minimal did not need morphine, pain significant today, caused her to vomit, morphine helped some. Son is at bedside. Physical Exam Vital signs: Vital Signs 02/16/18 12:00 02/16/18 16:00 02/16/18 20:00 Temperature 98.4 F 98.4 F 98.7 F Pulse Rate 68 63 72 Respiratory Rate 16 16 17 Blood Pressure 115/56 L 137/65 123/58 L Pulse Oximetry 97 97 96 02/16/18 23:53 02/17/18 00:00 02/17/18 00:34 Temperature 98.3 F Pulse Rate 70 Respiratory Rate 15 17 14 Blood Pressure 128/62 Pulse Oximetry 95 02/17/18 04:00 02/17/18 08:00 Temperature 97.8 F Pulse Rate 67 Respiratory Rate 15 17 Blood Pressure 131/67 Pulse Oximetry 98 Intake & Output 02/16/18 02/17/18 02/17/18 18:59 06:59 18:59 Intake Total 1000 / 1000 1100 / 1100 1000 / 1000 Balance 1000 / 1000 1100 / 1100 1000 / 1000 Weight 77.4 kg Intake: IV 1000 / 1000 1100 / 1100 1000 / 1000 NS Inj 1,000 ML @ 100 mls/hr IV 1000 / 1000 1000 / 1000 1000 / 1000 .CONT .Q10H DOMINIK Rx#:[id number] Rocephin Inj 1,000 MG In NS Inj 100 / 100 100 ML @ 200 mls/hr IV.SIG Q24H DOMINIK Rx#:[id number] Other: # Voids 5 Date of Last Bowel Movement 02/15/18 02/15/18 Narrative: GENERAL: In tears, appears uncomfortable SKIN: Warm and dry. HEAD: Normocephalic. EYES: No scleral icterus. No injection or drainage. NECK: Supple, trachea midline. No JVD or lymphadenopathy. CARDIOVASCULAR: Regular rate and rhythm without murmurs, gallops, or rubs. RESPIRATORY: Breath sounds equal bilaterally. No accessory muscle use. GASTROINTESTINAL: Abdomen soft, non-tender, nondistended. + left CVA tenderness MUSCULOSKELETAL: No cyanosis, or edema. Results - Labs CBC & Chem 7: 02/17/18 05:57 02/17/18 05:47 Laboratory Results - last 24 hr 02/17/18 02/17/18 05:47 05:57 WBC 5.5 RBC 3.63 L Hgb 10.7 L Hct 31.5 L MCV 86.9 MCH 29.6 MCHC 34.1 RDW 14.1 Plt Count 256 MPV 7.3 Neut % (Auto) 49.6 Lymph % (Auto) 39.4 [place] % (Auto) 6.8 Eos % (Auto) 3.6 Baso % (Auto) 0.6 Neut # (Auto) 2.7 Lymph # (Auto) 2.2 [place] # (Auto) 0.4 Eos # (Auto) 0.2 Baso # (Auto) 0.0 WBC Differential . Differential Comment Auto diff final Sodium 146 H Potassium 4.1 Chloride 111 H Carbon Dioxide 25.5 Anion Gap 10 BUN 13 Creatinine 0.98 Estimated GFR 59 L Random Glucose 105 Calcium 8.7 Total Bilirubin 0.2 AST 11 L ALT 22 Alkaline Phosphatase 106 Total Protein 7.0 D Albumin 2.9 L D Assessment and Plan - Assessment (1) Renal stone Code(s): N20.0 - Calculus of kidney Status: Acute (2) UTI (urinary tract infection) Code(s): N39.0 - Urinary tract infection, site not specified Status: Acute (3) BERNARDO (acute kidney injury) Code(s): N17.9 - Acute kidney failure, unspecified Status: Acute (4) Hydronephrosis Code(s): N13.30 - Unspecified hydronephrosis Status: Acute - Plan In summary this is a 57-year-old female patient with a medical history that is significant for hypertension recurrent renal stones who was brought to the ER for fevers, chills, and flank pain. The patient is primarily [place]-speaking. In the ER patient was found to have a UTI, CT of the abdomen showed a 7 mm distal left ureteral stone with obstruction moderate hydronephrosis/hydroureter. Renal stone -See CT per above -Urology has been consulted: Recommend nonemergent intervention, clear for DC home with urology follow-up as an outpatient. - Will attempt to control patients pain with PO pain medications, toradol scheduled, norco breakthrough pain -Morphine for pain control UTI -Urine culture pending -Rocephin 1 g daily AK I -Likely related to the above -Creatinine 1.29, unclear baseline DVT prophylaxis with bilateral SCDs Discharge Planning: CM to assist with urology follow up Likely dc this afternoon if pain controlled, will re-evaluate at about 3pm (4) Hydronephrosis Qualifiers: Hydronephrosis type: unspecified Qualified Code(s): N13.30 - Unspecified hydronephrosis
[2018-02-17] MEDS: Ketorolac 10 MG Tablet PO SCH ×3 (14:35→23:15)
[2018-02-17] MEDS: Melatonin 5 MG Tablet PO PRN (23:16)
[2018-02-18] MEDS: Ketorolac 10 MG Tablet PO SCH ×2 (05:45→11:52)
[2018-02-18] MEDS: Sod Chloride 0.9% Inj 1,000 ML IV.CONT SCH (06:06)
[2018-02-18 09:16] VITALS: RESP 16
--- NOTE | 2018-02-18 10:16 | P.PN ---
Subjective Interval history: Follow-up on patient with obstructive renal stone. Patient seen and examined. Patient states she is feeling much better and is asking if she can be discharged today. Her son is at the bedside helping with interpretation. She denies any fever chills. She denies any dysuria. She denies any nausea, vomiting or abdominal pain. Physical Exam Vital signs: Vital Signs 02/17/18 12:00 02/17/18 16:00 02/17/18 20:26 Temperature 98.2 F 98.3 F 98.4 F Pulse Rate 71 82 87 Respiratory Rate 16 16 17 Blood Pressure 117/55 L 148/76 H 135/63 Pulse Oximetry 97 98 96 02/17/18 23:11 02/17/18 23:45 02/18/18 03:01 Temperature 98.7 F Pulse Rate 74 Respiratory Rate 18 17 17 Blood Pressure 126/58 L Pulse Oximetry 97 02/18/18 06:15 02/18/18 08:00 Temperature 97.4 F L Pulse Rate 69 Respiratory Rate 18 16 Blood Pressure 129/70 Pulse Oximetry 97 Intake & Output 02/17/18 02/18/18 02/18/18 18:59 06:59 18:59 Intake Total 2480 / 2480 1580 / 1580 Balance 2480 / 2480 1580 / 1580 Weight 77.4 kg Intake: IV 1999 1100 / 1100 NS Inj 1,000 ML @ 100 mls/hr IV 1999 1000 / 1000 .CONT .Q10H DOMINIK Rx#:[id number] Rocephin Inj 1,000 MG In NS Inj 100 / 100 100 ML @ 200 mls/hr IV.SIG Q24H DOMINIK Rx#:[id number] Oral 480 / 480 480 / 480 Other: # Voids 10 3 Date of Last Bowel Movement 02/17/18 # Bowel Movements 3 0 Narrative: GENERAL: Well-developed well-nourished female patient, in no acute distress. Awake and alert. Sitting in bedside chair. Appears comfortable. SKIN: Warm and dry. HEAD: Atraumatic. Normocephalic. EYES: Pupils equal and round. No scleral icterus. No injection or drainage. ENT: No nasal bleeding or discharge. Mucous membranes pink and moist. NECK: Trachea midline. CARDIOVASCULAR: Regular rate and rhythm. RESPIRATORY: No accessory muscle use. Clear to auscultation. Breath sounds equal bilaterally. GASTROINTESTINAL: Abdomen soft, non-tender, nondistended. No CVAT bilaterally. MUSCULOSKELETAL: Extremities without clubbing, cyanosis, or edema. No obvious deformities. NEUROLOGICAL: Awake and alert. No obvious cranial nerve deficits. Motor grossly within normal limits. Nonfocal. Normal speech. PSYCHIATRIC: Appropriate mood and affect; insight and judgment normal. Results - Labs CBC & Chem 7: 02/17/18 05:57 02/17/18 05:47 - Imaging ITS Impressions Abdomen/Pelvis CT 02/16/18 00:00 CONCLUSION: 1. 7 mm distal left ureteral stone with obstruction. 2. Prior cholecystectomy. Assessment and Plan - Assessment (1) Renal stone Code(s): N20.0 - Calculus of kidney Status: Acute (2) UTI (urinary tract infection) Code(s): N39.0 - Urinary tract infection, site not specified Status: Acute (3) BERNARDO (acute kidney injury) Code(s): N17.9 - Acute kidney failure, unspecified Status: Acute (4) Hydronephrosis Code(s): N13.30 - Unspecified hydronephrosis Status: Acute - Plan 57-year-old female patient with a medical history that is significant for hypertension recurrent renal stones who was brought to the ER for fevers, chills , and flank pain. The patient is primarily Nepali-speaking. In the ER patient was found to have a UTI, CT of the abdomen showed a 7 mm distal left ureteral stone with obstruction moderate hydronephrosis/hydroureter. Obstructive renal stone with resultant left-sided hydronephrosis Renal colic -See CT per above -Urology has been consulted: Recommend nonemergent intervention, clear for DC home with urology follow-up as an outpatient. -Toradol for pain control Bacteruria UA positive blood, trace leukocytes, 6 white blood cells and 159 red blood cells , no culture indicated -discontinue IV Rocephin 1 g daily BERNARDO -Likely related to the above -Creatinine 1.29, unclear baseline -Resolved, creatinine 0.98 DVT prophylaxis with bilateral SCDs Code Status: FULL Discussed Condition With: patient, son, nursing staff, Dr. Thomason Discharge Planning: Plan for discharge later today once mandatory urology follow-up arranged by case management (4) Hydronephrosis Qualifiers: Hydronephrosis type: unspecified Qualified Code(s): N13.30 - Unspecified hydronephrosis
--- NOTE | 2018-02-18 10:20 | P.DS ---
Date of admission: 02/16/18 02:14 Primary care physician: No Primary Care Physician Attending physician on discharge: Leoncio Thomason Anticipated date of discharge: 02/18/18 Brief History from admission: This is a 57-year-old Citizen Of [place] female with a PMH of HTN and Renal Stones who was brought to the ER by Son for evaluation of fever, chills and left flank pain. History obtained by me from patient in Ghanaian, she tells me she's had left-sided flank pain for approx 10 days. Today, noted to have subjective fever /chills and multiple episodes of nausea/vomiting. Has been taking OTC Ibuprofen w/ minimal relief. H/o Renal Stones 8yrs ago and again 3 yrs ago, both of which resolved spontaneously. On arrival, BP 138/63, HR 95, O2 sat 100 % on RA, Temp 100.9. CBC essentially unremarkable. Chemistry unremarkable except for creatinine 1.29. Lactic Acid normal. UA positive for UTI. CT Abdomen/Pelvis with 7 mm distal left ureteral stone with obstruction and moderate hydronephrosis/hydroureter. S/p Rocephin in ER. Patient update on day of discharge: Follow-up on patient with obstructive renal stone. Patient seen and examined. Patient states she is feeling much better and is asking if she can be discharged today. Her son is at the bedside helping with interpretation. She denies any fever or chills. She denies any dysuria. She denies any nausea, vomiting or abdominal pain. Pain control with Toradol. Discussed with nursing staff, no acute events noted overnight. DS: Diagnosis - Discharge Diagnosis (1) Renal stone Status: Acute (2) UTI (urinary tract infection) Status: Acute (3) BERNARDO (acute kidney injury) Status: Acute (4) Hydronephrosis Status: Acute DS: Medications - Discharge Medications Prescriptions: ketorolac 10 mg PO Q6HR 5 Days tab tramadol [Ultram] 50 mg PO Q4-6H PRN #30 tab PRN Reason: Pain DS: Summary Hospital Course: Patient admitted with left sided renal colic with imaging revealing a 7 mm distal left ureteral stone with moderate hydronephrosis/hydroureter. Patient seen in consultation by urology who recommended nonemergent intervention and cleared patient for discharge to follow-up as outpatient for continued urologic treatment. Urology discussed possibility of ESWL versus ureteroscopy versus ureteral stent versus nephrostomy tube placement. Patient was started empirically on IV Rocephin but no culture was indicated for patient's urinalysis. Patient had elevated creatinine 1.29 indicating acute kidney injury secondary to obstructive renal stone/hydronephrosis. This resolved and patient's creatinine improved to 0.98 prior to discharge. Patient improved clinically. Case management was consulted to assist with mandatory urologic referral at the time of discharge. [employer] Prescription Drug Monitoring Database has been queried and verified prior to prescribing the controlled subsection. Patient is having significant pain caused by obstructive renal calculi which will last more than 3 days. Trial of alternative treatment options other than prescribed opioids has not helped. I believe that it is medically necessary to treat the patients pain because it is affecting patients ability to function. - Time Spent with Patient Total time spent providing and/or coordinating discharge services: Greater than 30 minutes - Quality: VTE Deep Vein Thrombosis/Pulmonary Embolism Present on Admission: No Exam Vital signs: Vital Signs 02/17/18 12:00 02/17/18 16:00 02/17/18 20:26 Temperature 98.2 F 98.3 F 98.4 F Pulse Rate 71 82 87 Respiratory Rate 16 16 17 Blood Pressure 117/55 L 148/76 H 135/63 Pulse Oximetry 97 98 96 02/17/18 23:11 02/17/18 23:45 02/18/18 03:01 Temperature 98.7 F Pulse Rate 74 Respiratory Rate 18 17 17 Blood Pressure 126/58 L Pulse Oximetry 97 02/18/18 06:15 02/18/18 08:00 Temperature 97.4 F L Pulse Rate 69 Respiratory Rate 18 16 Blood Pressure 129/70 Pulse Oximetry 97 Intake & Output 02/17/18 02/18/18 02/18/18 18:59 06:59 18:59 Intake Total 2480 / 2480 1580 / 1580 Balance 2480 / 2480 1580 / 1580 Weight 77.4 kg Intake: IV 1999 / 1999 1100 / 1100 NS Inj 1,000 ML @ 100 mls/hr IV 1999 / 1999 1000 / 1000 .CONT .Q10H DOMINIK Rx#:[id number] Rocephin Inj 1,000 MG In NS Inj 100 / 100 100 ML @ 200 mls/hr IV.SIG Q24H DOMINIK Rx#:[id number] Oral 480 / 480 480 / 480 Other: # Voids 10 3 Date of Last Bowel Movement 02/17/18 # Bowel Movements 3 0 Narrative: GENERAL: Well-developed well-nourished female patient, in no acute distress. Awake and alert. Sitting in bedside chair. Appears comfortable. SKIN: Warm and dry. HEAD: Atraumatic. Normocephalic. EYES: Pupils equal and round. No scleral icterus. No injection or drainage. ENT: No nasal bleeding or discharge. Mucous membranes pink and moist. NECK: Trachea midline. CARDIOVASCULAR: Regular rate and rhythm. RESPIRATORY: No accessory muscle use. Clear to auscultation. Breath sounds equal bilaterally. GASTROINTESTINAL: Abdomen soft, non-tender, nondistended. No CVAT bilaterally. MUSCULOSKELETAL: Extremities without clubbing, cyanosis, or edema. No obvious deformities. NEUROLOGICAL: Awake and alert. No obvious cranial nerve deficits. Motor grossly within normal limits. Nonfocal. Normal speech. PSYCHIATRIC: Appropriate mood and affect; insight and judgment normal. Results Procedures completed during hospitalization: None - Impressions ITS Impressions Abdomen/Pelvis CT 02/16/18 00:00 CONCLUSION: 1. 7 mm distal left ureteral stone with obstruction. 2. Prior cholecystectomy. Discharge Plan - Discharge Disposition Patient Disposition: Discharge Home - Discharge Condition Condition: Stable - Discharge Order Discharge Orders: Discharge Order (Routine); Ordered 02/18/18 Ordered By: Annalisa Mcqueen - Discharge Details Anticipated Discharge Date: 02/18/18 Discharge Comment: Pending set up for urology mandatory referral - Physicians Team Primary Care Provider: Primary Care Zoraid[place],No Attending Provider: Leoncio Thomason Other Providers: Osbaldo Boyd MD
[2018-02-18] MEDS: Senna/Docusate Sodium 8.6/50 MG Tablet PO SCH (11:22)
[2018-02-18 12:54] VITALS: BP 132/61; PULSE 72; TEMP 97.6; O2SAT 98
== END 2018-02-18 16:51 | disposition home or self-care (01) ==
LOC: NEDA 23:20 → NEPE 23:20 → N06 02-16 03:31
PROVIDERS: ADMIT Hospitalist; ATTEND Hospitalist